=== PATIENT | female | born 1950 | race Caucasian/White ===

== ENCOUNTER 2018-02-02 05:27 | Inpatient (IN) ==
[2018-01-28 11:36] LABS: Basophils % 0.9 % (0.0-0.8); Eosinophils # 0.1 10*3/uL (0.0-0.87); Eosinophils % 1.5 % (0.00-10.9); Hematocrit 36.9 VOL% (35.7-47.0); Hemoglobin 11.6 GM/DL (12.0-16.0); Immature Granulocytes % 0.4 %; Immature Granulocytes Absolute 0.02 #; Lymphocytes # 1.6 10*3/uL (1.4-4.0); Mean Corpuscular HGB Conc 31.4 GM/DL (32-36); Mean Corpuscular Hemoglobin 28 PG (27-34); Mean Corpuscular Volume 88.1 FL (87-102); Mean Platelet Volume 9.9 FL (9.6-12.0); Monocytes # 0.4 10*3/uL (0.11-0.8); Monocytes % 8.9 % (1.7-12.7); Neutrophils # 2.5 10*3/uL (1.4-7.4); Neutrophils % 53.3 % (38.7-73.9); Platelet Count 286 T/CUMM (130-400); Red Blood Count 4.19 MC/CUMM (3.8-5.5); Red Cell Distribution Width 14.6 % (9.3-17.3); White Blood Count 4.6 T/CUMM (4-12)
[2018-01-28 11:44] LABS: Apearance,Urine CLEAR (Clear); Bilirubin,Urine Negative (Negative); Blood, Urine Negative (Negative); Glucose,Urine (UA) Negative (Negative); Ketones,Urine 20 mg/dL (Negative); Nitrite,Urine Negative (Negative); PT Patient Result 10.7 SECS; Partial Thromboplastin Time 29.1 SECS (0-40); Protein,Urine Negative; RBC,Urine <1 /HPF (0-4); Urine Color Straw (Yellow); Urine Specific Gravity 1.008 (1.001-1.035); Urine Urobilinogen < 2.0 EU/DL (0.2-1.0); WBC,Urine <1 /HPF (0-6)
[2018-01-28 11:55] LABS: Albumin 3.9 G/DL (3.4-5.0); Bilirubin,Total 0.4 MG/DL (0.2-1.0); Calcium 8.9 MG/DL (8.5-10.1); Osmolality,Calculated 280.3 MOS/KG (273-304); Potassium 3.8 MMOL/L (3.5-5.1); Total Protein 7.2 G/DL (6.4-8.3)
[2018-02-02] MEDS ORDERED: ceFAZolin 1,000 MG VIAL ONE (05:49)
[2018-02-02] MEDS ORDERED: VANCOMYCIN 1,000 MG VIAL ONE (05:49)
[2018-02-02] MEDS ORDERED: VANCOMYCIN INJ 1,000 MG in SODIUM CHLORIDE 0.9% 250 ML IV ONE (06:00)
[2018-02-02] MEDS ORDERED: ceFAZolin 1,000 MG in SYRINGE 1 EACH IV ONE (06:00)
[2018-02-02] MEDS ORDERED: LACTATED RINGERS 1,000 ML IV SCH (06:00)
[2018-02-02] MEDS ORDERED: DIAZEPAM 5 MG TABLET ONE (06:22)
[2018-02-02] MEDS ORDERED: FAMOTIDINE 20 MG TABLET ONE (06:22)
[2018-02-02] MEDS ORDERED: DIAZEPAM 5 MG TABLET PO ONE (06:30)
[2018-02-02] MEDS ORDERED: FAMOTIDINE 20 MG TABLET PO ONE (06:30)
[2018-02-02] MEDS ORDERED: TRANEXAMIC ACID 1,000 MG/10 ML VIAL ONE (06:58)
[2018-02-02] MEDS ORDERED: BACITRACIN OINT 0.9 GM PACK TOP ONE (07:46)
[2018-02-02] MEDS ORDERED: ROPIVACAINE 0.5% 30 ML VIAL ONE (08:49)
[2018-02-02] MEDS ORDERED: DEXAMETHASONE 4 MG/1 ML VIAL ONE ×2 (08:49)
[2018-02-02 09:26] LABS: Apearance,Urine CLEAR (Clear); Bilirubin,Urine Negative (Negative); Blood, Urine Negative (Negative); Glucose,Urine (UA) Negative (Negative); Ketones,Urine 5 mg/dL (Negative); Nitrite,Urine Negative (Negative); Protein,Urine Negative; RBC,Urine 1 /HPF (0-4); Urine Color Straw (Yellow); Urine Specific Gravity 1.009 (1.001-1.035); Urine Urobilinogen < 2.0 EU/DL (0.2-1.0); WBC,Urine 3 /HPF (0-6)
[2018-02-02] MEDS ORDERED: SODIUM CHLORIDE 0.9% 250 ML IV ONE (09:27)
[2018-02-02] MEDS ORDERED: ACETAMINOPHEN 1,000 MG/100 ML VIAL IV ONE (09:27)
[2018-02-02] MEDS ORDERED: ePHEDrine 50 MG/ML AMP ONE (09:27)
[2018-02-02] MEDS ORDERED: PHENYLEPHRINE 1 MG/10 ML SYRINGE IV ONE (09:27)
[2018-02-02] MEDS ORDERED: PROPOFOL 200 MG/20 ML VIAL IV ONE (09:27)
[2018-02-02] MEDS ORDERED: LACTATED RINGERS 1,000 ML IV ONE (09:27)
[2018-02-02] MEDS ORDERED: SODIUM CHLORIDE 0.9% 100 ML IV ONE (09:27)
[2018-02-02] MEDS ORDERED: MIDAZOLAM 2 MG/2 ML VIAL ONE (09:27)
[2018-02-02] MEDS ORDERED: BUPIVACAINE SPINAL 0.75% 2 ML AMP SPINAL ONE (09:28)
[2018-02-02] MEDS ORDERED: HYDROmorphone 2 MG/1 ML VIAL IV PRN (09:31)
[2018-02-02] MEDS ORDERED: diphenhydrAMINE CAP 25 MG CAPSULE PO PRN (09:31)
[2018-02-02] MEDS ORDERED: MAGNESIUM HYDROXIDE SUSP 30 ML UDCUP PO PRN (09:31)
[2018-02-02] MEDS ORDERED: ZALEPLON 5 MG CAPSULE PO PRN ×2 (09:31→21:17)
[2018-02-02] MEDS ORDERED: oxyCODONE IR 5 MG TABLET PO PRN ×2 (09:31)
[2018-02-02] MEDS ORDERED: ONDANSETRON 4 MG/2 ML VIAL IV PRN (09:31)
[2018-02-02] MEDS: LACTATED RINGERS 1,000 ML IV SCH ×3 (10:20→23:27)
[2018-02-02] MEDS: HYDROmorphone 2 MG/1 ML VIAL IV PRN ×3 (10:23→20:50)
[2018-02-02] MEDS: KETOROLAC 30 MG/1 ML VIAL IV SCH ×3 (10:26→22:25)
[2018-02-02] MEDS ORDERED: PNEUMOCOCCAL VACCINE (13 VALENT) 0.5 ML SYRINGE IM ONE (11:30)
[2018-02-02] MEDS ORDERED: FAMOTIDINE 20 MG TABLET PO PRN (12:00)
[2018-02-02] MEDS: ceFAZolin 2,000 MG in PREMIX 1 EACH IV SCH ×2 (13:15→20:50)
[2018-02-02] MEDS: ACETAMINOPHEN 500 MG TABLET PO SCH ×2 (13:15→20:50)
[2018-02-02] MEDS: DOCUSATE SODIUM 100 MG CAPSULE PO SCH (20:51)
[2018-02-02] MEDS ORDERED: ZOLPIDEM 5 MG TABLET PO PRN (21:58)
[2018-02-03] MEDS: ACETAMINOPHEN 500 MG TABLET PO SCH ×2 (03:21→08:45)
[2018-02-03] MEDS: KETOROLAC 30 MG/1 ML VIAL IV SCH (03:22)
[2018-02-03] MEDS: LACTATED RINGERS 1,000 ML IV SCH ×2 (03:24→10:00)
[2018-02-03] MEDS: FONDAPARINUX 2.5 MG/0.5 ML SYRINGE SUBCUT SCH (03:24)
[2018-02-03 06:25] LABS: Basophils % 0.2 % (0.0-0.8); Eosinophils % 0.2 % (0.00-10.9); Hematocrit 26.5 VOL% (35.7-47.0); Hemoglobin 8.4 GM/DL (12.0-16.0); Immature Granulocytes % 0.3 %; Immature Granulocytes Absolute 0.02 #; Lymphocytes # 1.1 10*3/uL (1.4-4.0); Lymphocytes % 17.1 % (21.3-54.2); Mean Corpuscular HGB Conc 31.7 GM/DL (32-36); Mean Corpuscular Hemoglobin 28 PG (27-34); Mean Corpuscular Volume 86.9 FL (87-102); Mean Platelet Volume 10.7 FL (9.6-12.0); Monocytes # 0.7 10*3/uL (0.11-0.8); Monocytes % 10.8 % (1.7-12.7); Neutrophils # 4.4 10*3/uL (1.4-7.4); Neutrophils % 71.4 % (38.7-73.9); Platelet Count 207 T/CUMM (130-400); Red Blood Count 3.05 MC/CUMM (3.8-5.5); Red Cell Distribution Width 14.7 % (9.3-17.3); White Blood Count 6.2 T/CUMM (4-12)
[2018-02-03 07:04] LABS: Calcium 8.2 MG/DL (8.5-10.1); Osmolality,Calculated 279.3 MOS/KG (273-304); Potassium 3.9 MMOL/L (3.5-5.1)
[2018-02-03] MEDS: PARoxetine 20 MG TABLET PO SCH (08:45)
[2018-02-03] MEDS: DOCUSATE SODIUM 100 MG CAPSULE PO SCH ×2 (08:45→21:10)
[2018-02-03] MEDS: HYDROmorphone 2 MG/1 ML VIAL IV PRN ×2 (08:45→14:41)
[2018-02-03] MEDS: CELECOXIB 200 MG CAPSULE PO SCH (15:25)
[2018-02-04] MEDS: FONDAPARINUX 2.5 MG/0.5 ML SYRINGE SUBCUT SCH (04:47)
[2018-02-04 07:23] LABS: Basophils % 0.6 % (0.0-0.8); Eosinophils # 0.1 10*3/uL (0.0-0.87); Eosinophils % 1.7 % (0.00-10.9); Hematocrit 26.6 VOL% (35.7-47.0); Hemoglobin 8.5 GM/DL (12.0-16.0); Immature Granulocytes % 0.4 %; Immature Granulocytes Absolute 0.02 #; Lymphocytes % 18.9 % (21.3-54.2); Mean Corpuscular Hemoglobin 28 PG (27-34); Mean Corpuscular Volume 87.5 FL (87-102); Mean Platelet Volume 10.7 FL (9.6-12.0); Monocytes # 0.6 10*3/uL (0.11-0.8); Monocytes % 10.5 % (1.7-12.7); Neutrophils # 3.7 10*3/uL (1.4-7.4); Neutrophils % 67.9 % (38.7-73.9); Platelet Count 194 T/CUMM (130-400); Red Blood Count 3.04 MC/CUMM (3.8-5.5); White Blood Count 5.4 T/CUMM (4-12)
[2018-02-04] MEDS: DOCUSATE SODIUM 100 MG CAPSULE PO SCH (08:16)
[2018-02-04] MEDS: CELECOXIB 200 MG CAPSULE PO SCH (08:16)
[2018-02-04] MEDS: PARoxetine 20 MG TABLET PO SCH (08:16)
[2018-02-04 12:00] VITALS: BP 132/65
== END 2018-02-04 12:41 | disposition home health service (06) | DRG 470 ==
LOC: N.SDSINP 05:27 → N.OR 05:27 → N.3E 08:15
PROVIDERS: ADMIT Orthopaedic Surgery; ATTEND Orthopaedic Surgery

== ENCOUNTER 2019-01-17 05:45 | Inpatient (IN) ==
[2019-01-11 10:11] LABS: Apearance,Urine CLEAR (Clear); Bilirubin,Urine Negative (Negative); Blood, Urine Negative (Negative); Glucose,Urine (UA) Negative (Negative); Ketones,Urine Negative (Negative); Mucus,Urine Occasional /LPF (Occasional); Nitrite,Urine Negative (Negative); Protein,Urine Negative; RBC,Urine 1 /HPF (0-4); Squamous Epithelial Cell,Urine Occasional /HPF (0-10); Urine Color Yellow (Yellow); Urine Specific Gravity 1.014 (1.001-1.035); Urine Urobilinogen < 2.0 EU/DL (0.2-1.0)
[2019-01-11 10:12] LABS: PT Patient Result 10.4 SECS; Partial Thromboplastin Time 26.4 SECS (0-40)
[2019-01-11 10:21] LABS: Basophils # 0.1 10*3/uL (0.0-0.2); Basophils % 1.4 % (0.0-0.8); Eosinophils # 0.2 10*3/uL (0.0-0.87); Eosinophils % 4.4 % (0.00-10.9); Hematocrit 32.6 VOL% (35.7-47.0); Immature Granulocytes % 0.4 %; Immature Granulocytes Absolute 0.02 #; Lymphocytes # 1.3 10*3/uL (1.4-4.0); Lymphocytes % 25.9 % (21.3-54.2); Mean Corpuscular HGB Conc 28.8 GM/DL (32-36); Mean Corpuscular Volume 79.7 FL (87-102); Mean Platelet Volume 9.6 FL (9.6-12.0); Monocytes % 9.1 % (1.7-12.7); Neutrophils % 58.8 % (38.7-73.9); Platelet Count 327 T/CUMM (130-400); Red Blood Count 4.09 MC/CUMM (3.8-5.5); Red Cell Distribution Width 17.2 % (9.3-17.3)
[2019-01-11 10:22] LABS: Hemoglobin 9.4 GM/DL (12.0-16.0)
[2019-01-11 10:24] LABS: Hypochromasia 1+; Microcytosis 1+
[2019-01-11 10:25] LABS: Platelet Estimate Normal
[2019-01-11 10:29] LABS: Albumin 4.2 G/DL (3.4-5.0); Bilirubin,Total 0.4 MG/DL (0.2-1.0); Calcium 9.1 MG/DL (8.5-10.1); Osmolality,Calculated 278.5 MOS/KG (273-304); Total Protein 7.6 G/DL (6.4-8.3)
[~2019-01-17 05:45] MED LIST: LACTATED RINGERS 1,000 ML IV SCH
[2019-01-17] MEDS ORDERED: VANCOMYCIN 1,000 MG VIAL ONE (05:57)
[2019-01-17] MEDS ORDERED: ceFAZolin 1,000 MG VIAL ONE (05:57)
[2019-01-17] MEDS ORDERED: FAMOTIDINE 20 MG TABLET ONE (05:57)
[2019-01-17] MEDS ORDERED: FAMOTIDINE 20 MG TABLET PO ONE (06:00)
[2019-01-17] MEDS ORDERED: VANCOMYCIN INJ 1,000 MG in SODIUM CHLORIDE 0.9% 250 ML IV ONE ×2 (06:00→18:45)
[2019-01-17] MEDS ORDERED: ACETAMINOPHEN 500 MG TABLET PO ONE (06:00)
[2019-01-17] MEDS ORDERED: ceFAZolin 2,000 MG in SYRINGE 1 EACH IV ONE (06:00)
[2019-01-17] MEDS ORDERED: ACETAMINOPHEN 500 MG TABLET ONE (06:30)
[2019-01-17] MEDS ORDERED: BACITRACIN OINT 0.9 GM PACK TOP ONE (06:31)
[2019-01-17] MEDS ORDERED: TRANEXAMIC ACID 1,000 MG/10 ML VIAL ONE (06:31)
[2019-01-17] MEDS ORDERED: BUPIVACAINE SPINAL 0.75% 2 ML AMP SPINAL ONE (07:06)
[2019-01-17] MEDS ORDERED: GENTAMICIN 80 MG/2 ML VIAL ONE (07:42)
[2019-01-17] MEDS ORDERED: diphenhydrAMINE CAP 25 MG CAPSULE PO PRN ×2 (09:10→09:14)
[2019-01-17] MEDS ORDERED: MAGNESIUM HYDROXIDE SUSP 30 ML UDCUP PO PRN (09:10)
[2019-01-17] MEDS ORDERED: oxyCODONE IR 5 MG TABLET PO PRN ×2 (09:10)
[2019-01-17] MEDS ORDERED: HYDROmorphone 2 MG/1 ML VIAL IV PRN (09:13)
[2019-01-17] MEDS ORDERED: PROPOFOL 200 MG/20 ML VIAL IV ONE (09:22)
[2019-01-17] MEDS ORDERED: fentaNYL 100 MCG/2 ML VIAL ONE (09:22)
[2019-01-17] MEDS ORDERED: SODIUM CHLORIDE 0.9% 250 ML IV ONE (09:23)
[2019-01-17] MEDS ORDERED: ACETAMINOPHEN 1,000 MG/100 ML VIAL IV ONE (09:23)
[2019-01-17] MEDS ORDERED: MIDAZOLAM 2 MG/2 ML VIAL ONE (09:23)
[2019-01-17] MEDS ORDERED: SODIUM CHLORIDE 0.9% 100 ML IV ONE (09:23)
[2019-01-17] MEDS ORDERED: PHENYLEPHRINE 10 MG/1 ML VIAL IV ONE (09:23)
[2019-01-17] MEDS: LACTATED RINGERS 1,000 ML IV SCH ×2 (09:30→17:49)
[2019-01-17 09:43] LABS: Apearance,Urine CLEAR (Clear); Bilirubin,Urine Negative (Negative); Blood, Urine Negative (Negative); Glucose,Urine (UA) Negative (Negative); Ketones,Urine Negative (Negative); Nitrite,Urine Negative (Negative); Protein,Urine Negative; RBC,Urine 2 /HPF (0-4); Squamous Epithelial Cell,Urine Occasional /HPF (0-10); Urine Color Straw (Yellow); Urine Specific Gravity 1.017 (1.001-1.035); Urine Urobilinogen < 2.0 EU/DL (0.2-1.0)
[2019-01-17] MEDS: KETOROLAC 30 MG/1 ML VIAL IV SCH ×3 (10:55→21:06)
[2019-01-17] MEDS: ONDANSETRON 4 MG/2 ML VIAL IV PRN (11:09)
[2019-01-17] MEDS: ACETAMINOPHEN 500 MG TABLET PO SCH ×2 (14:10→21:05)
[2019-01-17] MEDS: ceFAZolin 2,000 MG in SYRINGE 1 EACH IV SCH ×2 (14:37→21:12)
[2019-01-17] MEDS: HYDROmorphone 2 MG/1 ML VIAL IV PRN (15:00)
[2019-01-17] MEDS ORDERED: ZOLPIDEM 10 MG PO SCH (21:00)
[2019-01-17] MEDS: DOCUSATE SODIUM 100 MG CAPSULE PO SCH (21:05)
[2019-01-18] MEDS: ACETAMINOPHEN 500 MG TABLET PO SCH ×2 (01:52→06:25)
[2019-01-18] MEDS: LACTATED RINGERS 1,000 ML IV SCH (03:13)
[2019-01-18] MEDS: FONDAPARINUX 2.5 MG/0.5 ML SYRINGE SUBCUT SCH (03:14)
[2019-01-18] MEDS: KETOROLAC 30 MG/1 ML VIAL IV SCH (04:25)
[2019-01-18 05:40] LABS: Basophils % 0.4 % (0.0-0.8); Eosinophils % 0.4 % (0.00-10.9); Hematocrit 24.6 VOL% (35.7-47.0); Hemoglobin 7.1 GM/DL (12.0-16.0); Immature Granulocytes % 0.3 %; Immature Granulocytes Absolute 0.02 #; Lymphocytes # 1.4 10*3/uL (1.4-4.0); Lymphocytes % 18.9 % (21.3-54.2); Mean Corpuscular HGB Conc 28.9 GM/DL (32-36); Mean Corpuscular Volume 81.7 FL (87-102); Mean Platelet Volume 9.3 FL (9.6-12.0); Monocytes % 10.6 % (1.7-12.7); Neutrophils % 69.4 % (38.7-73.9); Platelet Count 242 T/CUMM (130-400); Red Blood Count 3.01 MC/CUMM (3.8-5.5); Red Cell Distribution Width 17.4 % (9.3-17.3); White Blood Count 7.4 T/CUMM (4-12)
[2019-01-18 05:54] LABS: Calcium 8.4 MG/DL (8.5-10.1); Osmolality,Calculated 280.4 MOS/KG (273-304)
[2019-01-18 06:04] LABS: Anisocytosis 1+; Hypochromasia 1+; Microcytosis 1+; Ovalocytes Slight; Platelet Estimate Normal
[2019-01-18] MEDS ORDERED: SODIUM CHLORIDE 0.9% 1,000 ML IV PRN (06:35)
[2019-01-18] MEDS ORDERED: FUROSEMIDE 40 MG/4 ML VIAL IV PRN (06:35)
[2019-01-18] MEDS ORDERED: Esomeprazole Magnesium [Nexium] 20 MG PO SCH (09:00)
[2019-01-18] MEDS: MAGNESIUM OXIDE 400 MG TABLET PO SCH (09:07)
[2019-01-18] MEDS: DOCUSATE SODIUM 100 MG CAPSULE PO SCH ×2 (09:07→21:48)
[2019-01-18] MEDS: PARoxetine 20 MG TABLET PO SCH (09:07)
[2019-01-18] MEDS: HYDROmorphone 2 MG/1 ML VIAL IV PRN (14:05)
[2019-01-19] MEDS: FONDAPARINUX 2.5 MG/0.5 ML SYRINGE SUBCUT SCH (03:21)
[2019-01-19 06:06] LABS: Basophils % 0.7 % (0.0-0.8); Eosinophils # 0.2 10*3/uL (0.0-0.87); Eosinophils % 3.9 % (0.00-10.9); Hematocrit 30.4 VOL% (35.7-47.0); Immature Granulocytes % 0.3 %; Immature Granulocytes Absolute 0.02 #; Lymphocytes # 1.5 10*3/uL (1.4-4.0); Lymphocytes % 24.6 % (21.3-54.2); Mean Corpuscular HGB Conc 29.9 GM/DL (32-36); Mean Corpuscular Volume 79.8 FL (87-102); Mean Platelet Volume 9.8 FL (9.6-12.0); Monocytes % 11.5 % (1.7-12.7); Platelet Count 228 T/CUMM (130-400); Red Blood Count 3.81 MC/CUMM (3.8-5.5); Red Cell Distribution Width 18.5 % (9.3-17.3); White Blood Count 6.1 T/CUMM (4-12)
[2019-01-19 06:07] LABS: Hemoglobin 9.1 GM/DL (12.0-16.0)
[2019-01-19] MEDS: ONDANSETRON 4 MG/2 ML VIAL IV PRN (09:13)
[2019-01-19] MEDS: PARoxetine 20 MG TABLET PO SCH (10:03)
[2019-01-19] MEDS: MAGNESIUM OXIDE 400 MG TABLET PO SCH (10:03)
[2019-01-19] MEDS: DOCUSATE SODIUM 100 MG CAPSULE PO SCH ×2 (10:03→20:41)
[2019-01-20] MEDS: FONDAPARINUX 2.5 MG/0.5 ML SYRINGE SUBCUT SCH (03:30)
[2019-01-20 06:39] LABS: Basophils # 0.1 10*3/uL (0.0-0.2); Basophils % 0.6 % (0.0-0.8); Eosinophils # 0.3 10*3/uL (0.0-0.87); Eosinophils % 3.9 % (0.00-10.9); Hematocrit 34.2 VOL% (35.7-47.0); Hemoglobin 10.1 GM/DL (12.0-16.0); Immature Granulocytes % 0.5 %; Immature Granulocytes Absolute 0.04 #; Lymphocytes # 1.4 10*3/uL (1.4-4.0); Lymphocytes % 17.8 % (21.3-54.2); Mean Corpuscular HGB Conc 29.5 GM/DL (32-36); Mean Corpuscular Volume 80.3 FL (87-102); Mean Platelet Volume 9.4 FL (9.6-12.0); Monocytes % 9.3 % (1.7-12.7); Neutrophils % 67.9 % (38.7-73.9); Platelet Count 294 T/CUMM (130-400); Red Blood Count 4.26 MC/CUMM (3.8-5.5); Red Cell Distribution Width 18.6 % (9.3-17.3); White Blood Count 8.1 T/CUMM (4-12)
[2019-01-20 08:38] VITALS: BP 113/70
[2019-01-20] MEDS: DOCUSATE SODIUM 100 MG CAPSULE PO SCH (09:16)
[2019-01-20] MEDS: MAGNESIUM OXIDE 400 MG TABLET PO SCH (09:16)
[2019-01-20] MEDS: PARoxetine 20 MG TABLET PO SCH (09:17)
== END 2019-01-20 12:13 | disposition home health service (06) | DRG 467 ==
LOC: N.OR 05:45 → N.SDSINP 05:46 → N.3E 10:06
PROVIDERS: ADMIT Orthopaedic Surgery; ATTEND Orthopaedic Surgery